=== PATIENT | male | born 1930 | race Caucasian/White ===

== ENCOUNTER 2016-10-05 19:51 | Emergency (ER) | payer OTHER, MEDICAID ==
[2016-02-03 14:42] VITALS: Ht 170.2 cm; Wt 77.1 kg
[~2016-10-05] VITALS: Ht 170.2 cm; Wt 77.1 kg
[~2016-10-05 19:51] MED LIST: CARV12.548 PO; DOCU-144 PO; ENAL5TAB PO; ESOM20CA PO; FAMO20TA98 PO; FURO-149 PO; GABA-531 PO; GLYB1TAB3 PO; IPRA0.2S6 INH; LEVA1.25 NEB; LEVO500T20 PO; LOSA25TA3 PO; MODA100T5 PO
[2016-10-05 20:05] VITALS: BP 165/110; PULSE 125; RESP 16; TEMP 97.9; O2SAT 99
[2016-10-05 21:34] LABS: BASOPHILS % (AUTO) 0.2 % (0.0-2.0); EOSINOPHILS # (AUTO) 0.1 K/uL (0.0-0.4); EOSINOPHILS % (AUTO) 1.4 % (0.0-4.0); HEMATOCRIT 34.1 % (36-54); HEMOGLOBIN 11.4 g/dL (14.0-18.0); LYMPHOCYTES # (AUTO) 1.6 K/uL (1.0-5.5); LYMPHOCYTES % (AUTO) 21.2 % (20.5-51.5); MEAN CORPUSCULAR HEMOGLOBIN 28 pg (27-31); MEAN CORPUSCULAR HGB CONC 33 % (32-36); MEAN CORPUSCULAR VOLUME 85 fL (79.0-98.0); MONOCYTES # (AUTO) 0.7 K/uL (0.0-1.0); MONOCYTES % (AUTO) 8.7 % (1.7-9.3); NEUTROPHILS # (AUTO) 5.3 K/uL (1.8-7.7); NEUTROPHILS % (AUTO) 68.5 % (40.0-70.0); PLATELET COUNT (AUTO) 191 K/uL (130-430); RED BLOOD CELL COUNT(AUTO) 4.02 MIL/uL (4.2-6.2); RED CELL DISTRIBUTION WIDTH 14.2 % (9.0-15.0); WHITE BLOOD COUNT (AUTO) 7.7 K/uL (4.8-10.8)
[2016-10-05 21:38] LABS: ANION GAP 7 (5-15); CALCIUM 8.7 mg/dL (8.4-11.0); CHLORIDE 101 mmol/L (98-107); CREATININE 1.48 mg/dL (0.55-1.30); GLUCOSE 146 mg/dL (70-99); POTASSIUM 4.4 mmol/L (3.5-5.1); SODIUM SERUM 135 mmol/L (136-145); UREA NITROGEN, BLOOD 36 mg/dL (8-21)
[2016-10-05 22:03] LABS: BILIRUBIN,URINE NEGATIVE (NEGATIVE); BLOOD, URINE 3+ (NEGATIVE); CLARITY/URINE SL CLOUDY (CLEAR); COLOR,URINE BROWN (YELLOW); GLUCOSE,URINE NEGATIVE (NEGATIVE); KETONES,URINE NEGATIVE (NEGATIVE); LEUKOCYTE ESTERASE ,URINE 2+ (NEGATIVE); NITRITE, URINE POSITIVE (NEGATIVE); PROTEIN URINE 2+ (NEGATIVE); UROBILINOGEN,URINE 0.2 (0.2-1.0)
[2016-10-05 22:13] LABS: BACTERIA,URINE MODERATE /HPF (None Seen); RBC,URINE >100 /HPF (0-3); WBC,URINE 20-50 /HPF (0-3)
[2016-10-05] MEDS ORDERED: SULFAMETHOXAZOLE/TRIMETHOPR DS 1 TABLET PO ONE (22:15)
[2016-10-05 22:50] VITALS: BP 152/78; PULSE 98; RESP 16; TEMP 97.9; O2SAT 99
== END 2016-10-05 22:50 | disposition home or self-care (01) ==
LOC: SED 19:51
DX: N39.0 Urinary tract infection, site not specified (principal); E11.9 Type 2 diabetes mellitus without complications; I10 Essential (primary) hypertension; Z86.73 Personal history of transient ischemic attack (TIA), and cerebral infarction without residual deficits
CPT/HCPCS: 36415; 80048; 81000-TC; 85025; 87086; 87186-TC; 99284

== ENCOUNTER 2016-10-06 14:12 | Emergency (ER) | payer OTHER, MEDICAID ==
[2016-02-03 14:42] VITALS: Ht 167.6 cm; Wt 53.5 kg
[~2016-10-06] VITALS: Ht 167.6 cm; Wt 53.5 kg
[2016-10-06 14:14] VITALS: BP 165/67; PULSE 93; RESP 18; TEMP 97.9; O2SAT 99
--- NOTE | 2016-10-06 14:15 | NUR ---
Dr. Yang made aware of pt.'s presenting symptoms.
--- NOTE | 2016-10-06 14:18 | NUR ---
Pt placed to ER waiting room in stable condition.
--- NOTE | 2016-10-06 14:35 | NUR ---
Pt placed to ER bed 03. Report given to ILSA Betts.
--- NOTE | 2016-10-06 14:40 | NUR ---
ER Dr. waddell at bedside examining patient.
--- NOTE | 2016-10-06 14:52 | NUR ---
Bladder scan performed, 543mL urine found in bladder. discussed with Dr. Yang who orders for placement of large cath
[2016-10-06] MEDS ORDERED: LIDOCAINE VISCOUS 2%, 15 ML UDC MM ONE (15:00)
[2016-10-06] MEDS ORDERED: LIDOCAINE VISCOUS 2%, 15 ML UDC ONE (15:01)
--- NOTE | 2016-10-06 15:16 | NUR ---
Lidocaine instilled in urethra as ordered. # 20 FR Quinones catheter with use of sterile technique. Immediate return of 520 cc cloudy urine with blood clots noted. Bedside drainage bag converted to leg bag. Urine sample collected and sent to lab. Pt tolerated procedure well. Patient is unable to void.
[2016-10-06 15:45] LABS: BILIRUBIN,URINE NEGATIVE (NEGATIVE); BLOOD, URINE 3+ (NEGATIVE); CLARITY/URINE SL HAZY (CLEAR); COLOR,URINE YELLOW (YELLOW); GLUCOSE,URINE NEGATIVE (NEGATIVE); KETONES,URINE NEGATIVE (NEGATIVE); LEUKOCYTE ESTERASE ,URINE 1+ (NEGATIVE); NITRITE, URINE POSITIVE (NEGATIVE); PROTEIN URINE TRACE (NEGATIVE); UROBILINOGEN,URINE 0.2 (0.2-1.0)
--- NOTE | 2016-10-06 16:02 | NUR ---
Patient given written and verbal discharge instructions and verbalizes understanding. ER MD discussed with patient the results and treatment provided. Given copies of tests performed in ER. Patient in stable condition. ID arm band removed. No Rx given, patient has out patient Rx for Bactrim which he will complete. Patient educated on pain management and to follow up with PMD. Pain Scale 0/10. WC to car. Opportunity for questions provided and answered.
[2016-10-06 16:15] LABS: BACTERIA,URINE MANY /HPF (None Seen); RBC,URINE 20-50 /HPF (0-3)
--- NOTE | 2016-10-08 10:30 | NUR ---
Final C & S report reviewed, identified organism is resistant to Bactrim as previously prescribed. Dr. Harrison reviewed chart, new Rx of Augmentin 875mg PO BID x 10 days called into [facility] as requested by son, Daniel, who will ensure that the patient recieves medication.
== END 2016-10-06 16:04 | disposition home or self-care (01) ==
LOC: SED 14:12
DX: T83.018A Breakdown (mechanical) of other urinary catheter, initial encounter (principal); R33.9 Retention of urine, unspecified; E11.9 Type 2 diabetes mellitus without complications; I10 Essential (primary) hypertension; Z86.73 Personal history of transient ischemic attack (TIA), and cerebral infarction without residual deficits
CPT/HCPCS: 51702; 81000; 87086; 87186; 99284; J2001